=== PATIENT | male | born 1995 | race Two or more races ===

== ENCOUNTER 2024-07-30 15:47 | Emergency (ER) | payer OTHER ==
[~2024-07-30] VITALS: Ht 170.2 cm; Wt 83.9 kg
[2024-07-30] MEDS ORDERED: FAMOtidine 10 MG/ML (4ML VIAL) IV ONE (17:00)
[2024-07-30] MEDS ORDERED: ONDANSETRON HCL 2 MG/ML VIAL IV ONE (17:00)
[2024-07-30] MEDS ORDERED: FAMOTIDINE/PF 20 MG/2 ML VIAL ONE (17:01)
[2024-07-30] MEDS ORDERED: ONDANSETRON HCL 2 MG/ML VIAL ONE (17:01)
[2024-07-30 18:15] LABS: PH,URINE 7.5 (5.0-8.0); URINE APPEARANCE Clear; URINE BILIRRUBIN Negative (NEGATIVE); URINE BLOOD Moderate; URINE COLOR Yellow; URINE GLUCOSE Negative (NEGATIVE); URINE KETONE Negative (NEGATIVE); URINE LEUKOCYTE Negative; URINE NITRATE Negative; URINE PROTEIN 30 (NEGATIVE); URINE UROBILINOGEN 0.2 E.U./dl
[2024-07-30 18:16] LABS: URINE BACTERIA 20.7 uL (0.0-1933); URINE EPITHELIAL CELLS 1.5 uL (0.0-38.8); URINE WBC 3.6 uL (0.0-23.2)
[2024-07-30 18:16] LABS: BASO % 0.3 % (0.1-1.2); EOS # 0.01 (0.04-0.54); EOS % 0.1 % (0.7-7.0); HEMATOCRIT 41.7 % (40.1-51.0); HEMOGLOBIN 14.7 g/dL (13.7-17.5); LYMPH # 1.49 (1.18-3.74); LYMPH % 9.3 % (19.3-53.1); MEAN CORPUSCULAR HEMOGLOBIN 29.6 pg (25.6-32.2); MONO # 2.12 (0.24-0.82); NEUT # 12.33 (1.56-6.13); NEUT % 76.7 % (34.0-71.1); PLATELET COUNT 249 K/uL (163-369); RED BLOOD COUNT 4.97 M/uL (4.63-6.08); RED CELL DISTRIBUTION WIDTH 11.9 % (11.6-14.4)
[2024-07-30] MEDS ORDERED: KETOROLAC TROMETHAMINE 30 MG VIAL ONE (18:22)
[2024-07-30 18:25] LABS: MONO % 13.2 % (4.7-12.5)
[2024-07-30] MEDS ORDERED: CEFTRIAXONE SODIUM 1,000 MG VIAL IV ONE (18:30)
[2024-07-30] MEDS ORDERED: KETOROLAC TROMETHAMINE 30 MG VIAL IV ONE (18:30)
[2024-07-30 18:32] LABS: URINE CAST 0.14 uL (0.0-1.40)
[2024-07-30 19:06] LABS: BILIRUBIN TOTAL 1.58 mg/dL (0.3-1.2); CALCIUM 9.3 mg/dL (8.5-10.1); CREATININE SERUM 1.69 mg/dL (0.70-1.30); GFR 48.92; GLOBULINA 3.7 G/DL (2.4-3.5); POTASSIUM 3.82 mEq/L (3.5-5.1); TOTAL PROTEIN 7.7 gm/dL (6.4-8.2)
[2024-07-30] MEDS ORDERED: CEFTRIAXONE SODIUM 1,000 MG VIAL ONE (20:14)
[2024-07-30] MEDS ORDERED: PROTONIX40 MG PO (20:53)
[2024-07-30] MEDS ORDERED: ZOFRAN8 MG PO (20:53)
[2024-07-30] MEDS ORDERED: AZITHROMYCIN500 MG PO (20:53)
[2024-07-30 20:56] LABS: INR 1.11; PARTIAL THROMBOPLASTIN TIME 27.7 SECONDS (22.0-34.0)
== END 2024-07-30 21:06 | disposition home or self-care (01) ==
LOC: ER 15:47
PROVIDERS: General Practice
DX: M54.50 Low back pain, unspecified (principal); R07.9 Chest pain, unspecified; R11.10 Vomiting, unspecified; Z91.013 Allergy to seafood